=== PATIENT | female | born 1985 | race Caucasian/White ===

== ENCOUNTER 2018-01-24 18:32 | Emergency (ER) | payer OTHER ==
[~2018-01-24] VITALS: Ht 162.6 cm; Wt 55.3 kg
[~2018-01-24 18:32] MED LIST: CIPRO500 MG PO; MAGNEBIND 4001 EACH PO; MULTI VITAMIN1 EACH PO; ZINC50 M1 PO
[2018-01-24] MEDS ORDERED: DOXYCYCLINE HY100 MG PO (22:02)
[2018-01-24] MEDS ORDERED: TRAMADOL HCL50 MG PO (22:02)
== END 2018-01-24 22:21 | disposition home or self-care (01) ==
LOC: ED 18:32
DX: S29.011A Strain of muscle and tendon of front wall of thorax, initial encounter (principal); X58.XXXA Exposure to other specified factors, initial encounter; Z79.899 Other long term (current) drug therapy
CPT/HCPCS: 71101; 99283

== ENCOUNTER 2022-08-23 05:28 | Emergency (ER) | payer OTHER ==
[~2022-08-23] VITALS: Ht 162.6 cm; Wt 61.4 kg
[~2022-08-23 05:28] MED LIST changes: +DOXYCYCLINE HY100 MG PO; +TRAMADOL HCL50 MG PO
--- OUTSIDE RECORDS SUMMARY | 2022-08-23 05:33 | XMS ---
PreManage Notification: MERA PRINCE Security Sheet Hanger Events No recent Security Events currently on file CRITERIA MET - GUILLERMINAP CARE PROVIDERS JACQUELIN Sotelo [facility] Current PHONE: Unknown Rory has no Care Guidelines for this patient. E.Ken VISIT COUNT (12 MO.) 1 Located Within [facility] 1 JAYSHREE Rodriguez TOTAL 2 NOTE: Visits indicate total known visits. ED/UCC VISIT TRACKING (12 MO.) 08/23/2022 05:29 [facility] [place] TYPE: Emergency COMPLAINT: - URINE PROBLEM 09/01/2021 20:30 [facility] TYPE: Emergency DIAGNOSES: - Shortness of Breath - Tachycardia - Chest Pain - Dyspnea, unspecified INPATIENT VISIT TRACKING (12 MO.) No inpatient visits to display in this time frame [email or web address]
[2022-08-23] MEDS ORDERED: LATUDA20 MG PO (05:54)
[2022-08-23] MEDS ORDERED: LAMOTRIGINE100 MG PO (05:54)
[2022-08-23] MEDS ORDERED: CEPHALEXIN500 M1 PO (07:07)
== END 2022-08-23 07:19 | disposition home or self-care (01) ==
LOC: ED 05:28
DX: N39.0 Urinary tract infection, site not specified (principal); O03.9 Complete or unspecified spontaneous abortion without complication
CPT/HCPCS: 36415; 81001; 84702; A9270